=== PATIENT | female | born 1935 | race Caucasian/White ===

== ENCOUNTER 2016-11-21 07:29 | Day surgery (SDC) | payer MEDICARE ==
[~2016-11-21 07:29] MED LIST: Acetaminophen TAB* 325 MG PO PRN; Buffered Lidocaine 1% SYR 3ML* 3 ML/SYR SYRINGE INTRADERM ONE
[2016-11-21] MEDS ORDERED: Trypan Blue 0.06% SOL* 0.5 ML BTL ONE (09:16)
[2016-11-21] MEDS ORDERED: Midazolam* 1 MG/ML 2 ML VIAL (2 MG) ONE ×2 (09:19→09:33)
[2016-11-21] MEDS ORDERED: Phenylephrine 2.5% OPTH.SOL* 2 ML BTL ONE (10:09)
[2016-11-21] MEDS ORDERED: Neomycin/Polymy/Dex OPHTH.OIN* 3.5 GM ONE (10:09)
[2016-11-21] MEDS ORDERED: acetaZOLAMIDE TAB* 250 MG ONE (10:09)
[2016-11-21] MEDS ORDERED: Tetracaine 0.5% OPTH.SOL 4 ML* 1 DROP BTL ONE (10:09)
[2016-11-21] MEDS ORDERED: Tropicamide 1% OPTH.SOL* BTL ONE (10:09)
[2016-11-21] MEDS ORDERED: Povidone Iodine 5% OPTH* 30 ML BTL ONE (10:09)
[2016-11-21] MEDS ORDERED: Lidocaine 1% MPF* 2 ML VIAL ONE (10:09)
[2016-11-21] MEDS ORDERED: Flurbiprofen 0.03% OPTH.SOL* 2.5 ML BTL ONE (10:09)
[2016-11-21] MEDS ORDERED: Cyclopentolate 1% OPTH.SOL* 2 ML BTL ONE (10:09)
[2016-11-21 10:13] VITALS: BP 128/73
--- NOTE | 2016-11-21 23:16 | OP ---
DATE OF OPERATION: 11/21/16 - [facility] DATE OF : 39 SURGEON: Hever Cavazos MD ANESTHESIOLOGIST: Florencio Hurley MD ANESTHESIA: Monitored anesthesia care. PRE-OP DIAGNOSIS: Mature cataract, left eye. POST-OP DIAGNOSIS: Mature cataract, left eye. OPERATIVE PROCEDURE: Cataract extraction of the left eye. IMPLANTS: SN60WF 29.0 diopter lens to the left eye. COMPLICATIONS: None. DESCRIPTION OF PROCEDURE: The patient was given phenylephrine 2.5% and cyclopentolate 1% eye drops to the operative eye in the preoperative area. The patient was brought to the operating room where a time-out was taken to identify the correct patient, site and side of surgery. The patient's left eye was prepped and draped in the usual sterile fashion with 5% Betadine. A second time-out was taken was taken to verify the correct patient, site and side of surgery and correct lens selection. A lid speculum was placed to the left eye. A 1-mm paracentesis blade was used to make a clear corneal incision in the inferotemporal position. Preservative-free 1% lidocaine was injected into the anterior chamber. Vision Blue was then injected into the anterior chamber under a gas bubble. DisCoVisc was then injected into the anterior chamber. A 2.75-mm keratome blade was used to make a triplanar incision at the superotemporal position. A cystotome was used to initiate a capsulorrhexis, which was completed with MST forceps in a continuous and curvilinear manner. Hydrodissection of the lens was then performed with BSS on a cannula. The lens could be spun in the capsular bag. The phacoemulsification handpiece was used with a rcaojc-buf-nyuwhhp technique to remove the nucleus in its entirety with 48.47 CDE. The I/A handpiece then removed the residual cortical lens material. DisCoVisc was injected to inflate the capsular bag. The planned SN60WF 29.0 diopter lens was then injected into the capsular bag. The residual DisCoVisc was removed from the eye with the I/A handpiece. The corneal incisions were then hydrated and no leaks occurred at physiologic pressure around 20 mmHg per palpation. The lid speculum was removed and drapes removed. Maxitrol ointment was then placed on the surface of the operative eye. An adhesive patch and shield was then placed on the operative eye. The patient was taken to the postoperative area in stable condition. [id number]/[facility] #: [id number] RITA
== END 2016-11-21 10:24 | disposition home or self-care (01) ==
LOC: OREAST 07:29
PROVIDERS: ATTEND Student in an Organized Health Care Education/Training Program
DX: H25.12 Age-related nuclear cataract, left eye (principal); E11.3293 Type 2 diabetes mellitus with mild nonproliferative diabetic retinopathy without macular edema, bilateral; Z79.84 Long term (current) use of oral hypoglycemic drugs; I48.1 Persistent atrial fibrillation; Z79.01 Long term (current) use of anticoagulants; I10 Essential (primary) hypertension; E78.5 Hyperlipidemia, unspecified
CPT/HCPCS: A9270-GY; J2250; V2632

== ENCOUNTER 2016-11-28 09:27 | Day surgery (SDC) | payer MEDICARE ==
[~2016-11-28 09:27] MED LIST changes: -Buffered Lidocaine 1% SYR 3ML* 3 ML/SYR SYRINGE INTRADERM ONE; +Buffered Lidocaine 1% SYRIN* 5 ML/SYR SYRINGE INTRADERM ONE
[2016-11-28] MEDS ORDERED: Midazolam* 1 MG/ML 2 ML VIAL (2 MG) ONE (10:44)
[2016-11-28 11:45] VITALS: BP 114/71
[2016-11-28] MEDS ORDERED: Neomycin/Polymy/Dex OPHTH.OIN* 3.5 GM ONE (14:46)
[2016-11-28] MEDS ORDERED: Phenylephrine 2.5% OPTH.SOL* 2 ML BTL ONE (14:46)
[2016-11-28] MEDS ORDERED: Cyclopentolate 1% OPTH.SOL* 2 ML BTL ONE (14:46)
[2016-11-28] MEDS ORDERED: Tropicamide 1% OPTH.SOL* BTL ONE (14:46)
[2016-11-28] MEDS ORDERED: Flurbiprofen 0.03% OPTH.SOL* 2.5 ML BTL ONE (14:46)
[2016-11-28] MEDS ORDERED: acetaZOLAMIDE TAB* 250 MG ONE (14:46)
[2016-11-28] MEDS ORDERED: Povidone Iodine 5% OPTH* 30 ML BTL ONE (14:46)
[2016-11-28] MEDS ORDERED: Tetracaine 0.5% OPTH.SOL 4 ML* 1 DROP BTL ONE (14:46)
[2016-11-28] MEDS ORDERED: Lidocaine 1% MPF* 2 ML VIAL ONE (14:46)
--- NOTE | 2016-11-29 07:47 | OP ---
DATE OF OPERATION: 11/28/16 - [facility] DATE OF : 39 SURGEON: Hever Cavzaos MD ANESTHESIOLOGIST: Raj Dela Cruz MD ANESTHESIA: Monitored anesthesia care. PRE-OP DIAGNOSIS: Cataract, right eye. POST-OP DIAGNOSIS: Cataract, right eye. OPERATIVE PROCEDURE: Cataract surgery of the right eye. IMPLANTS: SN60WF 29.5 diopter lens to the right eye. COMPLICATIONS: None. DESCRIPTION OF PROCEDURE: The patient was given phenylephrine 2.5% and cyclopentolate 1% eyedrops to the operative eye in the preoperative area. The patient was brought to the operating room where a time-out was taken to identify the correct patient, site and side of surgery. The patient's right eye was prepped and draped in the usual sterile fashion with 5% Betadine. A second time-out was taken to verify the correct patient, site and side of surgery and correct lens selection. A lid speculum was placed to the right eye. A 1-mm paracentesis blade was used to make a clear corneal incision in the superotemporal position. Preservative-free 1% lidocaine was injected into the anterior chamber. DisCoVisc was then injected into the anterior chamber. A 2.75 -mm keratome blade was used to make a triplanar incision at the inferotemporal position. A cystotome was used to initiate a capsulorrhexis, which was completed with the Utrata forceps in a continuous and curvilinear manner. Hydrodissection of the lens was performed with BSS on a cannula. The lens could be spun in the capsular bag. The phacoemulsification handpiece was used with a sasqyk-ejs-ryqgyci technique to remove the nucleus in its entirety with 16.35 CDE. The I/A handpiece then removed the residual cortical lens material. Duovisc was injected to inflate the capsular bag. The planned SN60WF 29.5 diopter lens was injected into the capsular bag. The residual DisCoVisc was removed from the eye with the I/A handpiece. The corneal incisions were hydrated and no leaks occurred at physiologic pressure around 20 mmHg per palpation. The lid speculum was removed and drapes removed. Maxitrol ointment was placed on the surface of the operative eye. An adhesive patch and shield were placed on the operative eye. The patient was taken to the postoperative area in stable condition. [id number]/[facility] #: [id number] RITA
== END 2016-11-28 11:33 | disposition home or self-care (01) ==
LOC: OREAST 09:27
PROVIDERS: ATTEND Student in an Organized Health Care Education/Training Program
DX: H25.11 Age-related nuclear cataract, right eye (principal); E11.3293 Type 2 diabetes mellitus with mild nonproliferative diabetic retinopathy without macular edema, bilateral; Z79.84 Long term (current) use of oral hypoglycemic drugs; I10 Essential (primary) hypertension
CPT/HCPCS: A9270-GY; J2250; V2632